=== PATIENT | male | born 1955 | race Caucasian/White ===

== ENCOUNTER → 2017-08-06 | Day surgery (SDC) | payer BC ==
[~2017-08-06] MED LIST: Lactated Ringers 1,000 ML IV SCH
--- NOTE | 2017-08-06 15:23 | OR ---
DATE OF OPERATION: 08/06/2017 PREOPERATIVE DIAGNOSIS: 1. EPIGASTRIC PAIN. 2. GASTROESOPHAGEAL REFLUX DISEASE. POSTOPERATIVE DIAGNOSIS: 1. EPIGASTRIC PAIN. 2. GASTROESOPHAGEAL REFLUX DISEASE. SURGEON: Ishan Luz MD PROCEDURE: EGD WITH BIOPSIES X5, BROOKE. ANESTHESIA: QUANTITATIVE RESEARCHER. COMPLICATIONS: None. SPECIMEN: 1. Antral biopsy x2. 2. Antral BROOKE. 3. Fundal biopsy x3. FINDINGS: 1. Full-length EGD. 2. Antral gastritis with multiple erosions. 3. Small hiatal hernia with spontaneous GERD. No distal esophagitis. 4. Prominent gastric mucosa, mid fundus, questionable etiology. RECOMMENDATIONS: The patient will be placed on proton pump therapy for his gastritis and ulcerations, close followup with Dr. Gonzalez for pathology reports. INDICATIONS: The patient has been having some issues with epigastric pain and GERD. Dr. Gonzalez sent him for an EGD. DESCRIPTION OF PROCEDURE: The patient was prepped and draped, placed in left lateral decubitus position. A lubricated Olympus gastroscope was inserted over a bit and advanced to cricopharyngeus area and easily intubated in the esophagus. Esophageal lining was benign in its entire course. The Z-line was crisp and sharp at 39 cm with spontaneous reflux seen. There is a small hiatal hernia present but no distal esophagitis, stricturing, ulceration, or Ag's changes. The scope was advanced into the stomach through the pylorus into the second portion of duodenum. This and the duodenal bulb appeared benign. The scope was brought back into the stomach and retroflexed. The upper fundus and cardia appeared unremarkable. In the mid portion of the fundus and toward the antrum, the patient had really thick prominent gastric mucosa. We did do three biopsies of the area, unsure of the significance of this, could be normal variant. The tissue was soft. The antrum had significant gastritis around the peripyloric area with multiple small erosions. Two biopsies were taken. We did a BROOKE test. No other masses or lesions were seen. Air was suctioned, scope was removed without complication. ORALIA/JACK /[id number]
== END ==
LOC: CC.SDS 10:49
PROVIDERS: ATTEND Family Medicine
DX: K29.00 Acute gastritis without bleeding (principal); K44.9 Diaphragmatic hernia without obstruction or gangrene; K21.9 Gastro-esophageal reflux disease without esophagitis; I10 Essential (primary) hypertension; Z88.1 Allergy status to other antibiotic agents; Z79.82 Long term (current) use of aspirin; Z79.899 Other long term (current) drug therapy
CPT/HCPCS: 87081; J7120

== ENCOUNTER → 2018-07-08 | Day surgery (SDC) | payer MEDICARE, BC ==
[~2018-07-08] MED LIST changes: +Propofol 200 MG/20 ML SDV IV ONE
--- NOTE | 2018-07-08 14:23 | OR ---
DATE OF OPERATION: 07/08/2018 PREOPERATIVE DIAGNOSIS: HISTORY OF POLYPS. POSTOPERATIVE DIAGNOSIS: HISTORY OF POLYPS. SURGEON: Ishan Luz MD PROCEDURE: FULL-LENGTH COLONOSCOPY WITH FORCEPS POLYP REMOVAL X4. ANESTHESIA: ATTACHER. COMPLICATIONS: None. SPECIMEN: Four separate sessile polyps, see note, all less than 0.5 cm in size. FINDINGS: 1. Full-length colonoscopy. 2. Sigmoid diverticulosis, mild. 3. Polyps x4. RECOMMENDATIONS: Followup colonoscopy in 5 years. INDICATIONS: The patient has a history of previous colonoscopy with polyps removed. He is overdue for a followup. DESCRIPTION OF PROCEDURE: The patient was prepped and draped, placed in the left lateral decubitus position. A lubricated Olympus colonoscope was inserted and easily advanced to the cecum. We were able to directly visualize the ileocecal valve and appendiceal orifice. The bowel prep was fine. Upon withdrawal of the scope, the cecum appeared benign. In the mid ascending colon, the patient had a flat sessile polyp less than 0.5 cm removed in its entirety with 2 cold forceps biopsies. The rest of the ascending and transverse colon were unremarkable. Descending colon was benign. The patient does have scattered diverticula throughout the sigmoid and rectosigmoid junction, mild in severity. No inflammatory changes were seen. In the mid sigmoid colon, the patient had another small flat sessile polyp, likely hyperplastic, removed with a cold forceps biopsy x2 in its entirety. In the rectosigmoid junction, the patient had again another smaller typical adenoma, but flat and sessile in appearance. It was removed with 3 cold forceps biopsies without difficulty. In the rectal vault, the patient had another small flat sessile polyp, likely hyperplastic, removed with forceps biopsy x1. No other rectal lesions were seen. Retroflexion of the scope in the rectum showed no perianal lesions. Air was suctioned, scope removed without complication. ORALIA/JACK /[id number]
== END ==
LOC: CC.SDS 09:23
PROVIDERS: ATTEND Family Medicine
DX: Z12.11 Encounter for screening for malignant neoplasm of colon (principal); D12.5 Benign neoplasm of sigmoid colon; D12.7 Benign neoplasm of rectosigmoid junction; K63.5 Polyp of colon; K62.1 Rectal polyp; K57.30 Diverticulosis of large intestine without perforation or abscess without bleeding; K21.9 Gastro-esophageal reflux disease without esophagitis; I10 Essential (primary) hypertension; E78.5 Hyperlipidemia, unspecified; E55.9 Vitamin D deficiency, unspecified; F32.9 Major depressive disorder, single episode, unspecified; N40.0 Benign prostatic hyperplasia without lower urinary tract symptoms; N52.9 Male erectile dysfunction, unspecified; Z86.010 Personal history of colon polyps; Z79.82 Long term (current) use of aspirin; Z79.899 Other long term (current) drug therapy
CPT/HCPCS: J2704; J7120

== ENCOUNTER 2023-07-02 08:04 | Day surgery (SDC) | payer MEDICARE, BC ==
[2023-07-02] MEDS: Lactated Ringers 1,000 ML IV SCH (08:23)
[2023-07-02] MEDS ORDERED: fentaNYL 50 MCG/ML SDV ONE (08:33)
[2023-07-02] MEDS ORDERED: Propofol 200 MG/20 ML SDV ONE ×2 (08:33)
[2023-07-02] MEDS ORDERED: Ketamine 200 MG/20 ML MDV ONE (08:33)
== END 2023-07-02 09:55 | disposition home or self-care (01) ==
LOC: CC.SDS 08:04
PROVIDERS: ATTEND Family Medicine
DX: Z12.11 Encounter for screening for malignant neoplasm of colon (principal); D12.0 Benign neoplasm of cecum; K57.30 Diverticulosis of large intestine without perforation or abscess without bleeding; I10 Essential (primary) hypertension; K21.9 Gastro-esophageal reflux disease without esophagitis; F32.A Depression, unspecified; N40.0 Benign prostatic hyperplasia without lower urinary tract symptoms; E78.5 Hyperlipidemia, unspecified; Z79.82 Long term (current) use of aspirin; Z79.899 Other long term (current) drug therapy
CPT/HCPCS: 00811; 45385; 88305; J2704; J3010; J3490; J7120